=== PATIENT | male | born 1995 | race Caucasian/White ===

== ENCOUNTER 2017-05-13 08:49 | Emergency (ER) | payer MEDICAID, OTHER ==
[~2017-05-13] VITALS: Ht 177.8 cm; Wt 79.4 kg
[~2017-05-13 08:49] MED LIST: FLU01T PO; HYDR20TA2 PO; TOPI25TA32 PO
[2017-05-13 09:30] VITALS: BP 122/74
== END 2017-05-13 09:46 | disposition home or self-care (01) ==
LOC: ER 08:49
DX: R56.9 Unspecified convulsions (principal); E27.40 Unspecified adrenocortical insufficiency; Z76.0 Encounter for issue of repeat prescription; F17.210 Nicotine dependence, cigarettes, uncomplicated; Z88.2 Allergy status to sulfonamides

== ENCOUNTER 2017-11-18 14:46 | Inpatient (IN) | payer MEDICAID ==
[~2017-11-18] VITALS: Ht 177.8 cm; Wt 82.9 kg
[2017-11-18 16:14] LABS: Basophils # (auto) 0 uL; Eosinophils # (auto) 0 uL; Hematocrit 54.6 % (41.0-53.0); Hemoglobin 19.1 g/dL (13.5-17.5)
[2017-11-18 16:20] LABS: Basophils % (auto) 0.3 % (0.0-2.0); Eosinophils % (auto) 0.4 % (0.0-7.0); Lymphocytes # (auto) 1.9 uL; Lymphocytes % (auto) 14.3 % (10.0-50.0); Mean Corpuscular Hemoglobin 28.7 pg (28.0-32.0); Mean Corpuscular Hgb Conc. 34.9 g/dL (32.0-36.0); Mean Corpuscular Volume 82.4 fL (80.0-100.0); Monocytes % (auto) 7.6 % (0.0-12.0); Neutrophils # (auto) 10.3 uL; Neutrophils % (auto) 77.4 % (37.0-80.0); Nucleated Red Blood Cells % 0.2 %; Platelet Count (auto) 301 10^3/uL (140-450); Red Blood Cells 6.63 10^6/uL (4.5-5.90); Red Cell Distribution Width 12.6 % (11.8-14.3); White Blood Cell 13.3 10^3/uL (4.4-10.8)
[2017-11-18 17:55] LABS: Potassium 4.6 mmol/L (3.5-5.1)
[2017-11-18 17:57] LABS: Albumin 3.9 g/dL (3.4-5.0); Bilirubin, Total 0.9 mg/dL (0.2-1.0); Calcium 8.6 mg/dL (8.5-10.1); Total Protein 7.9 g/dL (6.4-8.2)
[2017-11-18] MEDS ORDERED: SODIUM CHLORIDE 0.9% 500 ML IVB ONE (21:27)
[2017-11-18] MEDS ORDERED: SODIUM CHL 3% 500 ML IV ONE ×2 (21:30→23:30)
[2017-11-18] MEDS: ONDANSETRON HCL 4 MG/2 ML VIAL IV ONE ×2 (21:42→23:44)
[2017-11-18] MEDS ORDERED: TOPIRAMATE 25 MG TAB PO ONE (22:30)
[2017-11-18 22:36] LABS: INR 1.09 (0.9-1.15); Partial Thromboplastin Time 33.5 sec (22.64-33.71); Prothrombin Time 11.9 sec (9.37-12.3)
[2017-11-18] MEDS ORDERED: PRE5T PO (22:37)
[2017-11-18 22:41] LABS: Urine Bacteria NONE SEEN /hpf (None Seen); Urine Blood Negative /uL (Negative); Urine Specific Gravity 1.013 (1.001-1.035); Urine WBC <1 /hpf (0 - 3)
[2017-11-18] MEDS ORDERED: HYDROcodone-ACET 5/325MG TAB PO PRN (23:30)
[2017-11-18] MEDS ORDERED: MORPHINE SULFATE 10 MG/ML INJ 1ML SDV IV PRN (23:30)
[2017-11-18] MEDS ORDERED: ACETAMINOPHEN 325 MG TAB PO PRN (23:30)
[2017-11-18] MEDS ORDERED: TEMAZEPAM 15 MG CAP PO PRN (23:30)
[2017-11-18] MEDS ORDERED: NITROGLYCERIN 0.4 MG SL TAB SL PRN (23:30)
[2017-11-19 07:14] LABS: Eosinophils # (auto) 0.1 uL; Hemoglobin 19.2 g/dL (13.5-17.5); Lymphocytes # (auto) 3.3 uL; Monocytes # (auto) 1.1 uL; White Blood Cell 8.6 10^3/uL (4.4-10.8)
[2017-11-19 07:15] LABS: Basophils # (auto) 0 uL; Basophils % (auto) 0.4 % (0.0-2.0); Eosinophils % (auto) 1.2 % (0.0-7.0); Hematocrit 54.4 % (41.0-53.0); Lymphocytes % (auto) 37.7 % (10.0-50.0); Mean Corpuscular Hemoglobin 29.4 pg (28.0-32.0); Mean Corpuscular Hgb Conc. 35.2 g/dL (32.0-36.0); Mean Corpuscular Volume 83.4 fL (80.0-100.0); Monocytes % (auto) 12.7 % (0.0-12.0); Neutrophils # (auto) 4.1 uL; Nucleated Red Blood Cells % 0.6 %; Platelet Count (auto) 255 10^3/uL (140-450); Red Blood Cells 6.52 10^6/uL (4.5-5.90); Red Cell Distribution Width 12.4 % (11.8-14.3)
[2017-11-19 07:35] LABS: Albumin 3.8 g/dL (3.4-5.0); BUN/Creatinine Ratio 18.9; Bilirubin, Total 1.1 mg/dL (0.2-1.0); Calcium 8.6 mg/dL (8.5-10.1); Total Protein 7.6 g/dL (6.4-8.2)
[2017-11-19] MEDS ORDERED: cefTRIAXone 1GM/10ml IVPUSH 10 ML IV SCH (09:00)
[2017-11-19] MEDS: FAMOTIDINE 20 MG TAB PO SCH ×2 (09:40→22:09)
[2017-11-19] MEDS: HYDROCORTISONE 10 MG TAB PO SCH (09:40)
[2017-11-19] MEDS: TOPIRAMATE 25 MG TAB PO SCH ×2 (09:40→22:09)
[2017-11-19] MEDS: FLUDROCORTISONE ACETATE 0.1 MG TAB PO SCH (09:40)
[2017-11-19] MEDS: cefTRIAXone 1GM/10ml IVPUSH 10 ML IV SCH (09:40)
[2017-11-19] MEDS: ONDANSETRON HCL 4 MG/2 ML VIAL IV PRN ×2 (10:21→11:53)
[2017-11-19 21:30] VITALS: BP 114/64
[2017-11-19 22:00] VITALS: BP 114/64
[2017-11-20 05:00] VITALS: BP 93/55
[2017-11-20 08:09] LABS: Basophils # (auto) 0.1 uL; Basophils % (auto) 1.1 % (0.0-2.0); Eosinophils # (auto) 0.1 uL; Mean Corpuscular Hgb Conc. 34.6 g/dL (32.0-36.0); Monocytes # (auto) 0.8 uL
[2017-11-20 08:13] LABS: Eosinophils % (auto) 1.3 % (0.0-7.0); Hematocrit 53.9 % (41.0-53.0); Hemoglobin 18.7 g/dL (13.5-17.5); Lymphocytes # (auto) 2.7 uL; Lymphocytes % (auto) 38.6 % (10.0-50.0); Mean Corpuscular Hemoglobin 29.4 pg (28.0-32.0); Mean Corpuscular Volume 84.7 fL (80.0-100.0); Monocytes % (auto) 11.3 % (0.0-12.0); Neutrophils # (auto) 3.3 uL; Neutrophils % (auto) 47.7 % (37.0-80.0); Nucleated Red Blood Cells % 1.5 %; Platelet Count (auto) 267 10^3/uL (140-450); Red Blood Cells 6.36 10^6/uL (4.5-5.90); Red Cell Distribution Width 12.3 % (11.8-14.3)
[2017-11-20 08:26] LABS: Albumin 3.6 g/dL (3.4-5.0); BUN/Creatinine Ratio 12.7; Bilirubin, Total 0.7 mg/dL (0.2-1.0); Calcium 8.6 mg/dL (8.5-10.1); Potassium 4.1 mmol/L (3.5-5.1); Total Protein 7.4 g/dL (6.4-8.2)
[2017-11-20] MEDS: cefTRIAXone 1GM/10ml IVPUSH 10 ML IV SCH (09:00)
[2017-11-20 09:30] VITALS: BP 103/59
[2017-11-20] MEDS ORDERED: TOPIRAMATE 25 MG TAB PO ONE (12:00)
[2017-11-20] MEDS: HYDROCORTISONE 10 MG TAB PO SCH (12:03)
[2017-11-20] MEDS: FLUDROCORTISONE ACETATE 0.1 MG TAB PO SCH (12:03)
[2017-11-20] MEDS: FAMOTIDINE 20 MG TAB PO SCH ×2 (12:04→22:06)
[2017-11-20 13:00] VITALS: BP 101/54
[2017-11-20 17:00] VITALS: BP 119/55
[2017-11-20 21:56] LABS: Calcium 9.1 mg/dL (8.5-10.1)
[2017-11-20 21:58] LABS: BUN/Creatinine Ratio 15.4
[2017-11-20 22:00] VITALS: BP 102/61
[2017-11-20] MEDS: TOPIRAMATE 25 MG TAB PO SCH (22:07)
[2017-11-20 23:27] LABS: Free T4 (Free Thyroxine) 1.23 ng/dL (0.89-1.76)
[2017-11-21 06:00] VITALS: BP 102/58
[2017-11-21 06:51] LABS: Basophils # (auto) 0.1 uL; Eosinophils # (auto) 0.1 uL; Eosinophils % (auto) 1.4 % (0.0-7.0); Lymphocytes # (auto) 3.2 uL
[2017-11-21 06:54] LABS: Basophils % (auto) 1.2 % (0.0-2.0); Hematocrit 52.2 % (41.0-53.0); Lymphocytes % (auto) 42.5 % (10.0-50.0); Mean Corpuscular Hemoglobin 29.1 pg (28.0-32.0); Mean Corpuscular Hgb Conc. 34.6 g/dL (32.0-36.0); Mean Corpuscular Volume 84.3 fL (80.0-100.0); Monocytes # (auto) 0.9 uL; Monocytes % (auto) 12.6 % (0.0-12.0); Neutrophils # (auto) 3.2 uL; Neutrophils % (auto) 42.3 % (37.0-80.0); Nucleated Red Blood Cells % 0.5 %; Platelet Count (auto) 279 10^3/uL (140-450); Red Blood Cells 6.19 10^6/uL (4.5-5.90); Red Cell Distribution Width 12.4 % (11.8-14.3); White Blood Cell 7.5 10^3/uL (4.4-10.8)
[2017-11-21 06:57] LABS: BUN/Creatinine Ratio 15.2; Calcium 9.4 mg/dL (8.5-10.1)
[2017-11-21 06:59] LABS: Potassium 4.1 mmol/L (3.5-5.1)
[2017-11-21 08:55] LABS: Cortisol,PM 3.26 ug/dL (3.09-16.66)
[2017-11-21] MEDS: cefTRIAXone 1GM/10ml IVPUSH 10 ML IV SCH (08:56)
[2017-11-21 09:00] VITALS: BP 104/61
[2017-11-21] MEDS ORDERED: LORazepam 2MG/ML-1ML VIAL IV ONE (09:45)
[2017-11-21] MEDS: HYDROCORTISONE 10 MG TAB PO SCH ×2 (10:00→22:14)
[2017-11-21] MEDS: FLUDROCORTISONE ACETATE 0.1 MG TAB PO SCH (10:01)
[2017-11-21] MEDS: FAMOTIDINE 20 MG TAB PO SCH ×2 (10:01→22:14)
[2017-11-21] MEDS: TOPIRAMATE 25 MG TAB PO SCH ×2 (10:01→22:14)
[2017-11-21 13:00] VITALS: BP 109/57
[2017-11-21] MEDS: guaiFENesin-DM 100/10mg/5ml SYR GT PRN ×2 (15:32→22:15)
[2017-11-21 18:00] VITALS: BP 99/60
[2017-11-21 22:00] VITALS: BP 110/68
[2017-11-22 05:00] VITALS: BP 106/57
[2017-11-22] MEDS: guaiFENesin-DM 100/10mg/5ml SYR GT PRN ×2 (05:22→12:10)
[2017-11-22 07:49] LABS: Potassium 4.3 mmol/L (3.5-5.1)
[2017-11-22 09:00] VITALS: BP 101/61
[2017-11-22] MEDS: HYDROCORTISONE 10 MG TAB PO SCH (09:39)
[2017-11-22] MEDS: FAMOTIDINE 20 MG TAB PO SCH (09:39)
[2017-11-22] MEDS: FLUDROCORTISONE ACETATE 0.1 MG TAB PO SCH (09:39)
[2017-11-22] MEDS: TOPIRAMATE 25 MG TAB PO SCH (09:40)
[2017-11-22] MEDS: cefTRIAXone 1GM/10ml IVPUSH 10 ML IV SCH (09:40)
[2017-11-22 13:00] VITALS: BP 99/59
[2017-11-22 16:30] VITALS: BP 99/59
[2017-11-22 16:57] VITALS: BP 99/59
== END 2017-11-22 16:57 | disposition home or self-care (01) | DRG 424 ==
LOC: EDBD 14:46 → ER 14:46 → TELE 14:47 → TELE-WESTW 11-19 21:36
PROVIDERS: ADMIT Nurse Practitioner; ATTEND Internal Medicine Pulmonary Disease
DX: E22.2 Syndrome of inappropriate secretion of antidiuretic hormone (principal); E27.40 Unspecified adrenocortical insufficiency; Q85.8 Other phakomatoses, not elsewhere classified; D75.1 Secondary polycythemia; N28.1 Cyst of kidney, acquired; G40.909 Epilepsy, unspecified, not intractable, without status epilepticus; F17.210 Nicotine dependence, cigarettes, uncomplicated; J20.9 Acute bronchitis, unspecified; Z82.49 Family history of ischemic heart disease and other diseases of the circulatory system; Z88.8 Allergy status to other drugs, medicaments and biological substances
CPT/HCPCS: 36415; 70450; 70551; 71046; 74176; 76775; 80048; 80051; 80053; 81001; 82088; 82150; 82533; 83690; 83735; 83930; 83935; 84244; 84295; 84300; 84439; 84443; 85025; 85610; 85730; 87040; 93005; 96360; J2405